=== PATIENT | male | born 1955 ===

== ENCOUNTER 2020-09-18 08:36 | Inpatient (IN) | payer OTHER ==
[~2020-09-18] VITALS: Ht 180.3 cm; Wt 108.9 kg
[~2020-09-18 08:36] MED LIST: ALPHA PO; AVAPRO150 MG PO; GABAPEN PO; HUMLOG; HYDROCHLOROTH12.5 MG PO; LANTUS; LIPIT PO; SUPER B COMPLE1 EAC1 PO; SYNTHROID125 MCG PO
[2020-09-18] MEDS ORDERED: LIPITOR40 M1 (16:00)
[2020-09-18] MEDS ORDERED: GABAPENTIN800 M1 (16:01)
[2020-09-18] MEDS ORDERED: ATORVASTATIN CA10 MG (16:01)
[2020-09-18] MEDS ORDERED: SEMGLEE100 UNIT/1 (16:02)
[2020-09-19] MEDS ORDERED: ULTRAM50 MG PO (07:18)
[2020-09-19] MEDS ORDERED: MIRALAX17 GM PO (07:18)
[2020-09-19] MEDS ORDERED: TYLENOL ARTHRI650 MG PO (07:18)
== END 2020-09-19 14:23 | disposition home or self-care (01) | DRG 419 ==
LOC: CIR.AMB 08:36 → O/R 15:45 → SURG 15:45 → CIR.AMB 19:45 → SURG 09-19 14:23
PROVIDERS: ADMIT Surgery; ATTEND Surgery
PROC: BF53200 Other Imaging of Gallbladder and Bile Ducts using Fluorescing Agent, Indocyanine Green Dye, Intraoperative (ICD-10-PCS; 2020-09-18)
PROC: 0FT44ZZ Resection of Gallbladder, Percutaneous Endoscopic Approach (ICD-10-PCS; principal; 2020-09-18 19:45)
DX: K80.20 Calculus of gallbladder without cholecystitis without obstruction (principal)

== ENCOUNTER 2023-05-25 08:20 | Outpatient (CLI) | payer OTHER ==
[~2023-05-25 08:20] MED LIST changes: +ATORVASTATIN CA10 MG; +GABAPENTIN800 M1; +LIPITOR40 M1; +MIRALAX17 GM PO; +SEMGLEE100 UNIT/1; +TYLENOL ARTHRI650 MG PO; +ULTRAM50 MG PO
== END 2023-05-25 08:27 | disposition home or self-care (01) ==
LOC: SONOGRAMA 08:20
PROVIDERS: ATTEND Internal Medicine
DX: M25.511 Pain in right shoulder (principal)